=== PATIENT | female | born 1925 | race Caucasian/White ===

== ENCOUNTER 2017-02-05 03:19 | Emergency (ER) | payer MEDICARE ==
[2017-02-05] MEDS ORDERED: ENOXAPARIN 100 MG/ML SYR SQ ONE (03:47)
--- NOTE | 2017-02-05 03:50 | Emergency Department Record ---
History of Present Illness - General Chief complaint: Lower Extremity Pain Stated complaint: LEG/FOOT PAIN Time Seen by Provider: 02/05/17 03:36 Source: Patient Mode of Arrival: EMS Limitations: No limitations - History of Present Illness Initial comments: pt woke up with severe pain in her right leg. 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 she states her r leg was numb also but that is improving MD Complaint: Extremity pain Onset/Timin -: Hour(s) Location: Right History of Same: No Radiation: Proximal Severity scale (1-10): 5 Quality: Sharp Consistency: Constant Improves with: Nothing Worsens with: Nothing Associated Symptoms: Other - Related Data Home Medications Medication Instructions Recorded Confirmed Last Taken Clopidogrel Bisulfate [Clopidogrel] 75 mg PO DAILY 12/19/13 02/05/17 05/04/16 Febuxostat [Uloric] 40 mg PO DAILY 12/19/13 02/05/17 05/04/16 Potassium Chloride [Klor-Con M20] 20 meq PO DAILY 12/19/13 02/05/17 05/04/16 Furosemide 40 mg PO BID 06/05/14 02/05/17 05/04/16 Hermon-3/Dha/Epa/Fish Oil [Fish Oil 500 mg PO DAILY 06/05/14 02/05/17 05/04/16 Dr 500 mg Softgel] Hydrocodone/Acetaminophen 1 tab PO Q6H PRN 06/12/14 02/05/17 05/04/16 [Hydrocodon-Acetaminophen 5-325] Gabapentin [Neurontin] 300 mg PO DAILY 02/05/17 02/05/17 Unknown Allergies Allergy/AdvReac Type Severity Reaction Status Date / Time Penicillins [PENICILLINS] Allergy Unknown HIVES Verified 05/05/16 09:40 Travel Screening - Travel/Exposure Within Last 30 Days Have you traveled within the last 30 days?: No - Travel/Exposure Within Last Year Have you traveled outside the [place] in the last year?: No - Additonal Travel Details Have you been exposed to anyone with a communicable illness?: No - Travel Symptoms Symptom Screening: None Review of Systems Reviewed: No additional complaints except as noted below Constitutional: Reports: As per HPI. Denies: Chills, Fever, Malaise, Night sweats, Weakness, Weight change Eyes: Reports: As per HPI. Denies: Eye discharge, Eye pain, Photophobia, Vision change ENT: Reports: As per HPI. Denies: Congestion, Dental pain, Ear pain, Epistaxis , Hearing loss, Throat pain Respiratory: Reports: As per HPI. Denies: Cough, Dyspnea, Hemoptysis, Stridor, Wheezes Cardiovascular: Reports: As per HPI. Denies: Arrhythmia, Chest pain, Dyspnea on exertion, Edema, Murmurs, Orthopnea, Palpitations, Paroxysmal nocturnal dyspnea, Rheumatic Fever, Syncope Endocrine: Reports: As per HPI. Denies: Fatigue, Heat or cold intolerance, Polydipsia, Polyuria Gastrointestinal: Reports: As per HPI. Denies: Abdominal pain, Constipation, Diarrhea, Hematemesis, Hematochezia, Melena, Nausea, Vomiting Genitourinary: Reports: As per HPI. Denies: Abnormal menses, Discharge, Dyspareunia, Dysuria, Frequency, Hematuria, Incontinence, Retention, Urgency Musculoskeletal: Reports: As per HPI. Denies: Arthralgia, Back pain, Gout, Joint swelling, Myalgia, Neck pain Skin: Reports: As per HPI. Denies: Bruising, Change in color, Change in hair/ nails, Lesions, Pruritus, Rash Neurological: Reports: As per HPI. Denies: Abnormal gait, Confusion, Headache, Numbness, Paresthesias, Seizure, Tingling, Tremors, Vertigo, Weakness Psychiatric: Reports: As per HPI. Denies: Anxiety, Auditory hallucinations, Depression, Homicidal thoughts, Suicidal thoughts, Visual hallucinations Hematological/Lymphatic: Reports: As per HPI. Denies: Anemia, Blood Clots, Easy bleeding, Easy bruising, Swollen glands Past Medical History - SOCIAL HISTORY Smoking Status: Former smoker Alcohol Use: None Drug Use: None - RESPIRATORY Hx Respiratory Disorders: No - CARDIOVASCULAR Hx Cardio Disorders: Yes Hx Edema: Yes Hx Hypertension: Yes - NEURO Hx Neuro Disorders: No - GI Hx GI Disorders: No - Hx Genitourinary Disorders: No - ENDOCRINE Hx Endocrine Disorders: No - MUSCULOSKELETAL Hx Musculoskeletal Disorders: Yes Hx Fibromyalgia: Yes Hx Gout: Yes - PSYCH Hx Psych Problems: No - HEMATOLOGY/ONCOLOGY Hx Hematology/Oncology Disorders: Yes Hx Cancer: Yes (Leukemia) Hx Chemotherapy: Yes (in remission) Hx Radiation Therapy: Yes Family Medical History Any Significant Family History?: No Physical Exam - General General Appearance: Alert, Oriented x3, Cooperative, Mild distress - Head Head exam: Normal inspection - Eye Eye exam: Normal appearance, PERRL, EOMI Pupils: Normal accommodation - ENT ENT exam: Normal exam, Mucous membranes moist, Normal external ear exam, Normal orophraynx Ear exam: Normal external inspection. negative: External canal tenderness Nasal Exam: Normal inspection. negative: Discharge, Sinus tenderness Mouth exam: Normal external inspection, Tongue normal Teeth exam: Normal inspection. negative: Dental caries Throat exam: Normal inspection. negative: Tonsillar erythema, Tonsillar exudate - Neck Neck exam: Normal inspection, Full ROM. negative: Tenderness - Respiratory Respiratory exam: Normal lung sounds bilaterally. negative: Respiratory distress - Cardiovascular Cardiovascular Exam: Regular rate, Normal rhythm, Normal heart sounds Peripheral Pulses: 0: Dorsalis Pedis (R), 1+: Dorsalis Pedis (L) - GI/Abdominal GI/Abdominal exam: Soft, Normal bowel sounds. negative: Tenderness - Rectal Rectal exam: Deferred - exam: Deferred - Extremities Extremities exam: Calf tenderness, Full ROM, Tenderness - Back Back exam: Reports: Normal inspection, Full ROM. Denies: Muscle spasm, Rash noted, Tenderness - Neurological Neurological exam: Alert, CN II-XII intact, Normal gait, Oriented X3 - Psychiatric Psychiatric exam: Normal affect, Normal mood - Skin Skin exam: Dry, Intact, Normal color, Warm Course Vital Signs 02/05/17 03:23 Temperature 98.2 F Pulse Rate 83 Respiratory 20 Rate Blood Pressure 167/69 Pulse Ox 96 - Reevaluation(s) Reevaluation #1: 02/05/17 06:23 pts care being turned over to dr cardenas pending dopplers Medical Decision Making - Lab Data Result diagrams: 02/05/17 04:00 02/05/17 04:00 Disposition Quality - Quality Measures Quality Measures: N/A - Blood Pressure Screening Blood Pressure Classification: Hypertensive Reading Systolic Measurement: 167 Diastolic Measurement: 69 Screening for High Blood Pressure: < First Hypertensive BP, F/U Documented > [ G8950] First Hypertensive Follow-up Interventions: Follow-up with rescreen GT 1 day and LT 4 weeks.
[2017-02-05 04:08] LABS: BASO % 0.6 % (0-6); EOS % 4.5 % (0-6); GRAN % 49.9 % (47-80); HEMATOCRIT 33.4 % (35.0-47.0); LYMPH % 33.3 % (16-45); MEAN CELL VOLUME 74.2 fl (81-97); MEAN CORPUSCULAR HEMOGLOBIN 22.2 pg (27-33); MEAN CORPUSCULAR HGB CONC 29.9 g/dl (32-36); MEAN PLATELET VOLUME 9.4 fl (7.4-10.4); MONO % 11.7 % (0-9); PLATELET COUNT 204 K/uL (130-400); RED CELL DISTRIBUTION WIDTH 18.8 % (11.5-14.5); WHITE BLOOD COUNT W/O DIFF 4.9 K/uL (4.2-12.2)
[2017-02-05 04:17] LABS: ANION GAP 11.2 (7-16); CARBON DIOXIDE 28.8 mmol/L (22-30); CREATININE 1.3 mg/dL (0.52-1.04)
[2017-02-05 04:19] LABS: INR 1.12; PROTHROMBIN TIME (PATIENT) 12.1 SECONDS (9.5-12.1)
--- NOTE | 2017-02-05 08:58 | Emergency Department Record ---
History of Present Illness - General Chief complaint: Lower Extremity Pain Stated complaint: LEG/FOOT PAIN Time Seen by Provider: 02/05/17 03:36 Source: Patient Mode of Arrival: EMS Limitations: No limitations - History of Present Illness Onset/Timin -: Hour(s) Location: Right History of Same: No Radiation: Proximal Severity scale (1-10): 5 Quality: Sharp Consistency: Constant Improves with: Nothing Worsens with: Nothing Associated Symptoms: Other - Related Data Home Medications Medication Instructions Recorded Confirmed Last Taken Clopidogrel Bisulfate [Clopidogrel] 75 mg PO DAILY 12/19/13 02/05/17 05/04/16 Febuxostat [Uloric] 40 mg PO DAILY 12/19/13 02/05/17 05/04/16 Potassium Chloride [Klor-Con M20] 20 meq PO DAILY 12/19/13 02/05/17 05/04/16 Furosemide 40 mg PO BID 06/05/14 02/05/17 05/04/16 [place]wood-3/Dha/Epa/Fish Oil [Fish Oil 500 mg PO DAILY 06/05/14 02/05/17 05/04/16 Dr 500 mg Softgel] Hydrocodone/Acetaminophen 1 tab PO Q6H PRN 06/12/14 02/05/17 05/04/16 [Hydrocodon-Acetaminophen 5-325] Gabapentin [Neurontin] 300 mg PO DAILY 02/05/17 02/05/17 Unknown Allergies Allergy/AdvReac Type Severity Reaction Status Date / Time Penicillins [PENICILLINS] Allergy Unknown HIVES Verified 05/05/16 09:40 Travel Screening - Travel/Exposure Within Last 30 Days Have you traveled within the last 30 days?: No - Travel/Exposure Within Last Year Have you traveled outside the [place] in the last year?: No - Additonal Travel Details Have you been exposed to anyone with a communicable illness?: No - Travel Symptoms Symptom Screening: None Review of Systems Constitutional: Reports: As per HPI. Denies: Chills, Fever, Malaise, Night sweats, Weakness, Weight change Eyes: Reports: As per HPI. Denies: Eye discharge, Eye pain, Photophobia, Vision change ENT: Reports: As per HPI. Denies: Congestion, Dental pain, Ear pain, Epistaxis , Hearing loss, Throat pain Respiratory: Reports: As per HPI. Denies: Cough, Dyspnea, Hemoptysis, Stridor, Wheezes Cardiovascular: Reports: As per HPI. Denies: Arrhythmia, Chest pain, Dyspnea on exertion, Edema, Murmurs, Orthopnea, Palpitations, Paroxysmal nocturnal dyspnea, Rheumatic Fever, Syncope Endocrine: Reports: As per HPI. Denies: Fatigue, Heat or cold intolerance, Polydipsia, Polyuria Gastrointestinal: Reports: As per HPI. Denies: Abdominal pain, Constipation, Diarrhea, Hematemesis, Hematochezia, Melena, Nausea, Vomiting Genitourinary: Reports: As per HPI. Denies: Abnormal menses, Discharge, Dyspareunia, Dysuria, Frequency, Hematuria, Incontinence, Retention, Urgency Musculoskeletal: Reports: As per HPI. Denies: Arthralgia, Back pain, Gout, Joint swelling, Myalgia, Neck pain Skin: Reports: As per HPI. Denies: Bruising, Change in color, Change in hair/ nails, Lesions, Pruritus, Rash Neurological: Reports: As per HPI. Denies: Abnormal gait, Confusion, Headache, Numbness, Paresthesias, Seizure, Tingling, Tremors, Vertigo, Weakness Psychiatric: Reports: As per HPI. Denies: Anxiety, Auditory hallucinations, Depression, Homicidal thoughts, Suicidal thoughts, Visual hallucinations Hematological/Lymphatic: Reports: As per HPI. Denies: Anemia, Blood Clots, Easy bleeding, Easy bruising, Swollen glands Past Medical History - SOCIAL HISTORY Smoking Status: Former smoker Alcohol Use: None Drug Use: None - RESPIRATORY Hx Respiratory Disorders: No - CARDIOVASCULAR Hx Cardio Disorders: Yes Hx Edema: Yes Hx Hypertension: Yes - NEURO Hx Neuro Disorders: No - GI Hx GI Disorders: No - Hx Genitourinary Disorders: No - ENDOCRINE Hx Endocrine Disorders: No - MUSCULOSKELETAL Hx Musculoskeletal Disorders: Yes Hx Fibromyalgia: Yes Hx Gout: Yes - PSYCH Hx Psych Problems: No - HEMATOLOGY/ONCOLOGY Hx Hematology/Oncology Disorders: Yes Hx Cancer: Yes (Leukemia) Hx Chemotherapy: Yes (in remission) Hx Radiation Therapy: Yes Family Medical History Any Significant Family History?: No Physical Exam - General Limitations: No limitations Course Vital Signs 02/05/17 02/05/17 02/05/17 03:23 05:03 06:18 Temperature 98.2 F Pulse Rate 83 Pulse Rate [ 74 81 Pulse Ox Probe] Respiratory 20 20 20 Rate Blood Pressure 167/69 Blood Pressure 149/69 139/63 [Left Arm] Pulse Ox 96 95 95 02/05/17 08:37 Temperature Pulse Rate Pulse Rate [ 76 Pulse Ox Probe] Respiratory 16 Rate Blood Pressure Blood Pressure 153/75 [Left Arm] Pulse Ox 98 - Reevaluation(s) Reevaluation #1: The patient's care was assumed from Dr. Shaffer. The patient is now back from Radiology. Presently she denies any leg pain but does have mild numbness to her R foot. On exam the R foot is mild cool compared to the L but the temperature is equal bilaterally from the ankle proximal. The motor function is normal and equal bilaterally to the lower extremities. It appears the patient does have vascular compromise to the R lower extremity on Arterial Doppler exam. Due to that fact we will contact her vascular surgeon at [facility] for further evaluation. 02/05/17 08:54 Reevaluation #2: I did consult with Dr. Padilla (Vascular Surgery) at [facility] and he would like the patient transferred to the ER at [facility] for further evaluation. I then did discuss the case with Dr. Mantilla at the [facility] ED and he does accept the patient in an ER to ER transfer. 02/05/17 09:05 Medical Decision Making - Data Complexity MDM Data: Labs Ordered and/or Reviewed, X-Ray Ordered and/or Reviewed - Lab Data Result diagrams: 02/05/17 04:00 02/05/17 04:00 Lab Results 02/05/17 02/05/17 02/05/17 Range/Units 04:00 04:00 04:00 WBC 4.9 (4.2-12.2) K/uL RBC 4.50 (3.80-5.40) M/uL Hgb 10.0 L (11.6-16.0) gm/dl Hct 33.4 L (35.0-47.0) % MCV 74.2 L (81-97) fl MCH 22.2 L (27-33) pg MCHC 29.9 L (32-36) g/dl RDW 18.8 H (11.5-14.5) % Plt Count 204 (130-400) K/uL MPV 9.4 (7.4-10.4) fl Gran % 49.9 (47-80) % Lymphocytes % 33.3 (16-45) % Monocytes % 11.7 H (0-9) % Eosinophils % 4.5 (0-6) % Basophils % 0.6 (0-6) % PT 12.1 (9.5-12.1) SECONDS INR 1.12 APTT 51.00 H (24.5-39.1) SECONDS Sodium 142 (136-145) mmol/L Potassium 3.5 (3.5-5.1) mmol/L Chloride 102 (98-107) mmol/L Carbon Dioxide 28.8 (22-30) mmol/L Anion Gap 11.2 (7-16) BUN 29 H (7-17) mg/dL Creatinine 1.3 H (0.52-1.04) mg/dL Estimated GFR 41 ml/min Random Glucose 106 (70-110) mg/dL Calcium 8.7 (8.5-10.1) mg/dL - Radiology Data Radiology results: Report reviewed (Venous Doppler: Neg Arterial Doppler: Vascular occlusion intermittent from the R Superficial Fem Artery to the Popliteal Artery.) Disposition Disposition: Transfer Clinical Impression: Vascular occlusion Disposition: Acute Care Hospital Transfer Transfer To: [facility] Reason For Transfer: Vascular Surgery Accepting Physician: Jose Rafael Time Discussed w/Accepting Physician: 09:07 Condition: (2) Stable Forms: Patient Portal Access Time of Disposition: 09:07 Quality - Quality Measures Quality Measures: N/A - Blood Pressure Screening View Details: Yes Blood Pressure Classification: Hypertensive Reading Systolic Measurement: 146 Diastolic Measurement: 64 Screening for High Blood Pressure: < Pre-Hypertensive BP, F/U Documented > [ G8950] Pre-Hypertensive Follow-up Interventions: Follow-up with rescreen every year.
--- NOTE | 2017-02-05 13:17 | US UNI ARTERIAL DOPPLER REPORT ---
EXAM: RIGHT LOWER EXTREMITY ARTERIAL DOPPLER ULTRASOUND HISTORY: DIMINISHED PULSES. TECHNIQUE: Transverse and longitudinal sonographic images of the right lower extremity arterial system was performed. Comparison: None. FINDINGS: Imaging over the right lower extremity arterial system shows low level areas of increased echogenicity in the region of the distal right superficial femoral artery and right popliteal artery. Doppler and spectral analysis with color flow was utilized. No definitive flow in this region. There are abnormal waveforms with some degree of flow associated with the trifurcation vessels distal to the knee, however, accurate velocities were not obtained due to poor flow, by the bladder trimmer. IMPRESSION: FINDINGS WORRISOME FOR OCCLUSIVE THROMBUS ASSOCIATED WITH THE DISTAL RIGHT FEMORAL ARTERY EXTENDING TO THE RIGHT POPLITEAL ARTERY. A SMALL AMOUNT OF FLOW ASSOCIATED WITH THE TRIFURCATION VESSELS OF THE RIGHT LOWER EXTREMITY WAS NOTED. JOB NUMBER: [id number] MTDD
--- NOTE | 2017-02-05 14:06 | US VENOUS DOPPLER REPORT ---
EXAM: RIGHT LOWER EXTREMITY DUPLEX VENOUS DOPPLER ULTRASOUND HISTORY: DIMINISHED PULSES. TECHNIQUE: Transverse and longitudinal sonographic images of the right lower extremity deep venous system was performed. Comparison: None. FINDINGS: No visible thrombus formation. Doppler and spectral analysis with color flow was utilized. Normal waveforms. Normal compression and augmentation. IMPRESSION: NEGATIVE FOR DVT. JOB NUMBER: [id number] MTDD
== END 2017-02-05 09:55 | disposition short-term general hospital (02) ==
LOC: ER 03:19
DX: I82.431 Acute embolism and thrombosis of right popliteal vein (principal); R20.0 Anesthesia of skin; I10 Essential (primary) hypertension; Z87.891 Personal history of nicotine dependence; Z86.718 Personal history of other venous thrombosis and embolism
CPT/HCPCS: 80048; 85025; 85610; 85730; 96372; 99285; J1650